=== PATIENT | female | born 2000 | race Caucasian/White ===

== ENCOUNTER 2018-05-21 22:14 | Emergency (ER) | payer MEDICAID ==
[~2018-05-21] VITALS: Ht 160 cm; Wt 65.0 kg
[2018-05-22 00:59] LABS: CLARITY URINE CLEAR (CLEAR); COLOR URINE YELLOW (YELLOW); KETONES URINE NEGATIVE (NEGATIVE); LEUKOCYTE ESTERASE URINE NEGATIVE (NEGATIVE); NITRITE URINE NEGATIVE (NEGATIVE); OCCULT BLOOD URINE NEGATIVE (NEGATIVE); PH URINE 7.5 (4.5-8.0); PROTEIN URINE NEGATIVE (NEGATIVE); SPECIFIC GRAVITY URINE 1.005 (1.005-1.030); UROBILINOGEN URINE 0.2 E.U./dL (0.2-1.0)
[2018-05-22 01:11] VITALS: BP 110/65
== END 2018-05-22 02:57 | disposition home or self-care (01) ==
LOC: ER 22:14
DX: L03.211 Cellulitis of face (principal); L02.01 Cutaneous abscess of face
CPT/HCPCS: 81003; 81025; 99283